=== PATIENT | male | born 1970 | race Two or more races ===

== ENCOUNTER 2018-01-12 11:28 | Inpatient (IN) | payer OTHER ==
[2018-01-12 15:28] VITALS: BMI 23.3
--- NOTE | 2018-01-12 17:46 | HP ---
COWS - Scale Resting Pulse: 0= [place] 80 or Below Sweatin= Chills/Flushing Restless Observation: 1= Difficult to Sit Still Pupil Size: 0= Normal to Room Light Bone or Joint Aches: 1= Mild Discomfort Runny Nose/ Eye Tearin= Runny Nose/Eyes GI Upset > 30mins: 2= Nausea/Diarrhea Tremor Observation: 1= Tremor [place], Not Seen Yawning Observation: 4= Several Times/Minute Anxiety or Irritability: 1=Feels Anxious/Irritable Goose Flesh Skin: 3=Piloerection COWS Score: 16 Admission [facility] Chief Complaint: opioid withdrawal symptoms Allergies/Adverse Reactions: Allergies Allergy/AdvReac Type Severity Reaction Status Date / Time Fish Containing Products Allergy Severe Swelling Verified 01/12/18 16:54 No Known Drug Allergies Allergy Verified 01/12/18 16:54 NKDA Allergy Uncoded 01/12/18 16:54 History of Present Illness: 47 yo male with hx of nicotine, IV heroin and IV cocaine dependence is here seeking detox. Last detox at [facility] one year ago. PMHX: Hep C, insomnia and depression. Denies suicidal / homicidal ideation. Denies hx of black outs, OD or seizures. Longest period of sobriety 4 years ( 1999 - 2003). Exam Limitations: No Limitations - Ebola screening Have you traveled outside of the country in the last 21 days: No Have you had contact with anyone from an Ebola affected area: No Have you been sick,other than usual withdrawal symptoms: No Do you have a fever: No - Review of Systems Constitutional: Chills, Diaphoresis, Loss of Appetite, Changes in sleep EENT: reports: Dental Problems (missing teeth) Respiratory: reports: No Symptoms reported Cardiac: reports: No Symptoms Reported GI: reports: Nausea, Poor Appetite, Poor Fluid Intake, Abdominal cramping : reports: No Symptoms Reported Musculoskeletal: reports: No Symptoms Reported Integumentary: reports: Other (dryness) Endocrine: reports: Increased Thirst Hematology: reports: No Symptoms Reported Psychiatric: reports: Mood/Affect Appropiate, Orientated x3, Depressed Other Systems: Reviewed and Negative Patient History - Patient Medical History Hx Anemia: No Hx Asthma: No Hx Chronic Obstructive Pulmonary Disease (COPD): No Hx Cancer: No Hx Cardiac Disorders: No Hx Congestive Heart Failure: No Hx Hypertension: No Hx Hypercholesterolemia: No Hx Pacemaker: No HX Cerebrovascular Accident: No Hx Seizures: No Hx Dementia: No Hx Diabetes: No Hx Gastrointestinal Disorders: No Hx Liver Disease: Yes (Hep C ) Hx Genitourinary Disorders: No Hx Sexually Transmitted Disorders: No Hx Renal Disease (ESRD): No Hx Thyroid Disease: No Hx Human Immunodeficiency Virus (HIV): No (1 year ago , declines testing ) Hx Hepatitis C: Yes (dieagnosed 1996) Hx Depression: Yes Hx Suicide Attempt: Yes (tried to jump in front of a car./denies any S/H ideation today) Hx Bipolar Disorder: Yes (rispiriadal) Hx Schizophrenia: No - Patient Surgical History Past Surgical History: Yes Hx Neurologic Surgery: No Hx Cataract Extraction: No Hx Cardiac Surgery: No Hx Lung Surgery: No Hx Breast Surgery: No Hx Breast Biopsy: No Hx Abdominal Surgery: No Hx Appendectomy: No Hx Cholecystectomy: No Hx Genitourinary Surgery: No Hx Section: No Hx Orthopedic Surgery: No Other Surgical History: tendon repair, left hand in 1985 Anesthesia Reaction: No - PPD History Previous Implant?: No Documented Results: Negative w/proof Date: 12/01/15 Results: 0 mm PPD to be Administered?: Yes - Smoking Cessation Smoking history: Current every day smoker Have you smoked in the past 12 months: Yes Aproximately how many cigarettes per day: 20 Hx Chewing Tobacco Use: No Initiated information on smoking cessation: Yes 'Breaking Loose' booklet given: 01/12/18 - Substance & Tx. History Hx Alcohol Use: Yes Hx Substance Use: Yes Substance Use Type: Cocaine, Heroin Hx Substance Use Treatment: Yes (Last detox at [facility] one year ago.) - Substances Abused Cocaine Route: Smoking Frequency: Daily Amount used: $20 Age of first use: 12 Heroin Route: Injection Frequency: Daily Amount used: 10-15 BAGS Age of first use: 21 Date of Last Use: 01/12/18 Family Disease History - Family Disease History Family Disease History: Diabetes: Mother, Heart Disease: Brother Admission Physical Exam S - Vital Signs Vital Signs: Vital Signs - 24 hr 01/12/18 15:26 Temperature 97 F L Pulse Rate 50 L Respiratory 20 Rate Blood Pressure 135/77 - Physical General Appearance: Yes: Disheveled, Mild Distress, Sweating, Anxious HEENTM: Yes: EOMI, Hearing grossly Normal, Normal ENT Inspection, Normocephalic , Normal Voice, VÍCTOR, Pharynx Normal, Tm's normal, Other (poor dentition) Respiratory: Yes: Chest Non-Tender, Lungs Clear, Normal Breath Sounds, No Respiratory Distress, No Accessory Muscle Use Neck: Yes: No masses,lesions,Nodules, Trachea in good position Breast: Yes: Breast Exam Deferred Cardiology: Yes: Regular Rhythm, Regular Rate Abdominal: Yes: Normal Bowel Sounds, Non Tender, Flat, Soft Genitourinary: Yes: Within Normal Limits Back: Yes: Normal Inspection Musculoskeletal: Yes: full range of Motion, Gait Steady, Pelvis Stable Extremities: Yes: Normal Capillary Refill, Normal Inspection, Normal Range of Motion, Non-Tender 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 intact, Fully Oriented, Alert, Motor Strength 5/5, Depressed Affect Integumentary: Yes: Normal Color, 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 (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, no infection present) Lymphatic: Yes: Within Normal Limits - Diagnostic (1) IVDU (intravenous drug user) Current Visit: Yes Status: Acute (2) Cocaine dependence Current Visit: Yes Status: Acute Qualifiers: Substance use status: uncomplicated Qualified Code(s): F14.20 - Cocaine dependence, uncomplicated (3) Hepatitis, chronic Current Visit: Yes Status: Chronic (4) Nicotine dependence Current Visit: Yes Status: Acute Qualifiers: Nicotine product type: cigarettes Substance use status: uncomplicated Qualified Code(s): F17.210 - Nicotine dependence, cigarettes, uncomplicated (5) Opioid dependence with withdrawal Current Visit: Yes Status: Acute Cleared for Admission [facility] - Detox or Rehab [facility] Level of Care: Medically Managed Detox Regimen/Protocol: Methadone [facility] Breath Alcohol Content Breath Alcohol Content: 0 Urine Drug Screen - Results Drug Screen Negative: No Urine Drug Screen Results: CHRISTINA-Cocaine, OPI-Opiates
[2018-01-12] MEDS ORDERED: MAG HYDROX/AL HYDROX/SIMETH 30 ML UNIT-DOSE CUP PO PRN (17:47)
[2018-01-12] MEDS ORDERED: hydrOXYzine PAMOATE 50 MG CAPSULE (FP) PO PRN (17:47)
[2018-01-12] MEDS ORDERED: P-EPHED 60MG/TRIPROLIDI 2.5MG TABLET PO PRN (17:47)
[2018-01-12] MEDS ORDERED: MENTHOL/PHENOL 1 EACH UD MM PRN (17:47)
[2018-01-12] MEDS ORDERED: IBUPROFEN 400 MG TABLET (FP) PO PRN (17:47)
[2018-01-12] MEDS ORDERED: NICOTINE POLACRILEX 2 MG GUM BC PRN (17:47)
[2018-01-12] MEDS ORDERED: MAGNESIUM CITRATE 300 ML BOTTLE PO PRN (17:47)
[2018-01-12] MEDS ORDERED: LOPERAMIDE HCL 2 MG CAPSULE PO PRN (17:47)
[2018-01-12] MEDS ORDERED: ACETAMINOPHEN 325 MG TABLET (FP) PO PRN (17:47)
[2018-01-12] MEDS ORDERED: MAGNESIUM HYDROX 2400MG/30ML ORAL SUSPENSION 30 ML CUP PO PRN (17:47)
[2018-01-12] MEDS ORDERED: guaiFENesin/D-METHORPHAN HB 10 ML UNIT-DOSE CUPS PO PRN (17:47)
[2018-01-12] MEDS ORDERED: METHADONE HCL 10 MG TABLET (FOR DETOX USE ONLY) PO ONE ×2 (18:30→23:00)
[2018-01-12] MEDS: diazePAM 5 MG TABLET PO PRN (19:35)
[2018-01-12] MEDS ORDERED: MELATONIN 5 MG TABLETS PO PRN (22:00)
[2018-01-12] MEDS: THIAMINE HCL 100 MG TABLET (FP) PO SCH (23:15)
[2018-01-13 02:54] LABS: URINE APPEARANCE CLEAR; URINE BILIRUBIN NEGATIVE (<2.0 mg/dL); URINE COLOR AMBER; URINE GLUCOSE (UA) NEGATIVE (NEGATIVE); URINE KETONE NEGATIVE (NEGATIVE); URINE LEUK ESTERASE NEGATIVE (NEGATIVE); URINE NITRITE NEGATIVE (NEGATIVE); URINE PROTEIN NEGATIVE (NEGATIVE); URINE UROBILINOGEN NEGATIVE mg/dL (0.2-1.0)
--- NOTE | 2018-01-13 09:48 | CONSULT ---
[facility] Psychiatric Consult - Data Date of interview: 01/13/18 Admission source: [facility] Identifying data: This is a 47 yo male with hstory of nicotine, IV heroin and IV cocaine dependence with no psychiatric hospitalization history is here reporting withdrawal symptoms and looking for detox. seeking detox. Last detox at [facility] one year ago. Substance Abuse History: Patient reports long history of substsnce abuse, reports abusing Cocaine and Heroin, reports IV abuse and dependence, reports Nicotine ndepemdence as well. Medical History: Hep C, Psychiatric History: As per computer patient has a history of Paranoid Schizophrenia, patient denies history of Schizophrenia, reports being under influence at the time he was diagnosed with Schizophrenia. Patient is poor historyan and probably minimizing his past psychiatric history. Denies suicidal and homicidal history Physical/Sexual Abuse/Trauma History: Denies Additional Comment: Observation. Detox Unit Care P[rotocol. Haldol 1mg po prn q4 for psychosis and anxiety Mental Status Exam - Mental Status Exam Alert and Oriented to: Person Cognitive Function: Fair Patient Appearance: Unkempt Mood: Sad Affect: Flat Patient Behavior: Sedated Speech Pattern: Delayed Voice Loudness: Mildly Soft/Quiet Thought Process: Circumstantial Thought Disorder: Being Controlled Hallucinations: Denies Suicidal Ideation: Denies Homicidal Ideation: Denies Insight/Judgement: Fair Sleep: Difficulty falling asleep Appetite: Weight loss Muscle strength/Tone: Mild Hypotonicity Gait/Station: Shuffling Additional Comments: Observation. Detox Unit Care P[rotocol. Haldol 1mg po prn q4 for psychosis and anxiety Psychiatric Findings - Problem List ([place] 1, 2,3) (1) Cocaine dependence Status: Acute Qualifiers: Substance use status: uncomplicated Qualified Code(s): F14.20 - Cocaine dependence, uncomplicated (2) Heroin dependence Status: Acute (3) IVDU (intravenous drug user) Status: Acute (4) Nicotine dependence Status: Acute Qualifiers: Nicotine product type: cigarettes Substance use status: uncomplicated Qualified Code(s): F17.210 - Nicotine dependence, cigarettes, uncomplicated (5) Opioid dependence with withdrawal Status: Acute (6) Crack cocaine use Status: Chronic (7) Hepatitis C carrier Status: Chronic (8) Hepatitis, chronic Status: Chronic (9) Paranoid schizophrenia Status: Chronic - Initial Treatment Plan Initial Treatment Plan: Observation. Detox Unit Care P[rotocol. Haldol 1mg po prn q4 for psychosis and anxiety
[2018-01-13] MEDS ORDERED: METHADONE HCL 10 MG TABLET (FOR DETOX USE ONLY) PO ONE (10:00)
[2018-01-13] MEDS ORDERED: ONDANSETRON *ODT* 4 MG TABLET SL PRN (10:14)
--- NOTE | 2018-01-13 10:30 | EKG ---
Test Reason : Blood Pressure : / mmHG Vent. Rate : 044 BPM Atrial Rate : 044 BPM P-R Int : 160 ms QRS Dur : 104 ms QT Int : 458 ms P-R-T Axes : 045 058 041 degrees QTc Int : 391 ms MARKED SINUS BRADYCARDIA MODERATE VOLTAGE CRITERIA FOR LVH, MAY BE NORMAL VARIANT ABNORMAL ECG NO PREVIOUS ECGS AVAILABLE Confirmed by SUSAN JETT MD ([id number]) on 01/13/2018 10:30:39 AM Referred By: Confirmed By:SUSAN JETT MD
[2018-01-13] MEDS: PRENATAL VITAMINS W/ FOLIC ACID TABLET (FP) PO SCH (10:33)
[2018-01-13] MEDS: diazePAM 5 MG TABLET PO PRN (10:33)
[2018-01-13] MEDS: NICOTINE 21 MG/24 HOURS TOPICAL PATCH TD SCH (10:34)
[2018-01-13] MEDS: cloNIDine HCL 0.1 MG TABLET PO SCH ×2 (10:35→22:28)
[2018-01-13] MEDS: CYCLOBENZAPRINE HCL 10 MG TABLET (FP) PO PRN (10:35)
[2018-01-13 10:53] LABS: HEMOGLOBIN 13.9 GM/dL (11.7-16.9); MCH 29.2 pg (25.7-33.7); MEAN CELL VOLUME 86.1 fl (80-96); MEAN PLT VOLUME 7.6 fl (7.5-11.1); PLATELET COUNT 239 K/MM3 (134-434); RBC 4.77 M/mm3 (4.00-5.60); WHITE BLOOD COUNT 5.9 K/mm3 (4.0-10.0)
[2018-01-13 11:28] LABS: ANION GAP 11 (8-16); BLOOD UREA NITROGEN 10 mg/dL (7-18); CALCIUM 8.6 mg/dL (8.5-10.1); CHLORIDE 104 mmol/L (98-107); CO2 26 mmol/L (21-32); CREATININE 0.6 mg/dL (0.7-1.3); GLUCOSE,RANDOM 90 mg/dL (74-106); POTASSIUM 3.9 mmol/L (3.5-5.1); SGOT/AST 63 U/L (15-37); SGPT/ALT 58 U/L (12-78); SODIUM 141 mmol/L (136-145)
[2018-01-13 11:30] LABS: ALK PHOS 95 U/L (45-117); BILIRUBIN,TOTAL 0.8 mg/dL (0.2-1.0); TOT PROT 7.8 g/dl (6.4-8.2)
--- NOTE | 2018-01-13 12:47 | PN ---
[facility] COWS - Scale Resting Pulse: 0= [place] 80 or Below Sweatin= Chills/Flushing Restless Observation: 3= Extraneous Movement Pupil Size: 1= Pupils >than Normal Bone or Joint Aches: 2= Severe Diffuse Aches Runny Nose/ Eye Tearin= Runny Nose/Eyes GI Upset > 30mins: 3= Vomiting/Diarrhea Tremor Observation of Outstretched Hands: 2= Slight Tremor Visible Yawning Observation: 1= 1-2x During Session Anxiety or Irritability: 2=Irritable/Anxious Goose Flesh Skin: 0=Smooth Skin COWS Score: 17 S Progress Note (SOAP) Subjective: alert,irritable,anxious,interrupted sleep,pain in the body and back,nausea, vomiting,pain in the body and back Objective: 01/13/18 12:44 Vital Signs Temperature 97.3 F L 01/13/18 09:28 Pulse Rate 53 L 01/13/18 09:28 Respiratory Rate 18 01/13/18 09:28 Blood Pressure 151/80 01/13/18 09:28 O2 Sat by Pulse Oximetry (%) ekg sinus bradycardia 44/min qt/qtc 458/391 no chest pain,no sob,no dizziness Laboratory Last Values WBC 5.9 K/mm3 (4.0-10.0) 01/13/18 07:30 RBC 4.77 M/mm3 (4.00-5.60) 01/13/18 07:30 Hgb 13.9 GM/dL (11.7-16.9) 01/13/18 07:30 Hct 41.0 % (35.4-49) 01/13/18 07:30 MCV 86.1 fl (80-96) 01/13/18 07:30 MCH 29.2 pg (25.7-33.7) 01/13/18 07:30 MCHC 34.0 g/dl (32.0-35.9) 01/13/18 07:30 RDW 15.0 % (11.9-15.9) D 01/13/18 07:30 Plt Count 239 K/MM3 (134-434) 01/13/18 07:30 MPV 7.6 fl (7.5-11.1) 01/13/18 07:30 Sodium 141 mmol/L (136-145) 01/13/18 07:30 Potassium 3.9 mmol/L (3.5-5.1) 01/13/18 07:30 Chloride 104 mmol/L (98-107) 01/13/18 07:30 Carbon Dioxide 26 mmol/L (21-32) 01/13/18 07:30 Anion Gap 11 (8-16) 01/13/18 07:30 BUN 10 mg/dL (7-18) 01/13/18 07:30 Creatinine 0.6 mg/dL (0.7-1.3) L 01/13/18 07:30 Creat Clearance w eGFR > 60 (>60) 01/13/18 07:30 Random Glucose 90 mg/dL (74-106) D 01/13/18 07:30 Calcium 8.6 mg/dL (8.5-10.1) 01/13/18 07:30 Total Bilirubin 0.8 mg/dL (0.2-1.0) 01/13/18 07:30 AST 63 U/L (15-37) H D 01/13/18 07:30 ALT 58 U/L (12-78) D 01/13/18 07:30 Alkaline Phosphatase 95 U/L (45-117) 01/13/18 07:30 Total Protein 7.8 g/dl (6.4-8.2) 01/13/18 07:30 Albumin 3.0 g/dl (3.4-5.0) L 01/13/18 07:30 Urine Color Radha 01/12/18 22:30 Urine Appearance Clear 01/12/18 22:30 Urine pH 6.0 (5.0-8.0) 01/12/18 22:30 Ur Specific [place] 1.026 (1.001-1.035) 01/12/18 22:30 Urine Protein Negative (NEGATIVE) 01/12/18 22:30 Urine Glucose (UA) Negative (NEGATIVE) 01/12/18 22:30 Urine Ketones Negative (NEGATIVE) 01/12/18 22:30 Urine Blood Negative (NEGATIVE) 01/12/18 22:30 Urine Nitrite Negative (NEGATIVE) 01/12/18 22:30 Urine Bilirubin Negative (<2.0 mg/dL) 01/12/18 22:30 Urine Urobilinogen Negative mg/dL (0.2-1.0) 01/12/18 22:30 Ur Leukocyte Esterase Negative (NEGATIVE) 01/12/18 22:30 01/13/18 12:47 rpr pending Assessment: 01/13/18 12:47 withdrawal symptom Plan: continue detox
[2018-01-13] MEDS: THIAMINE HCL 100 MG TABLET (FP) PO SCH (22:28)
[2018-01-14] MEDS: diazePAM 5 MG TABLET PO PRN ×2 (04:40→10:36)
[2018-01-14] MEDS ORDERED: METHADONE HCL 5 MG TABLET (FOR DETOX USE ONLY) PO ONE (10:00)
[2018-01-14] MEDS: CYCLOBENZAPRINE HCL 10 MG TABLET (FP) PO PRN (10:36)
[2018-01-14] MEDS: PRENATAL VITAMINS W/ FOLIC ACID TABLET (FP) PO SCH (10:36)
[2018-01-14] MEDS: cloNIDine HCL 0.1 MG TABLET PO SCH ×2 (10:36→22:58)
[2018-01-14] MEDS: NICOTINE 21 MG/24 HOURS TOPICAL PATCH TD SCH (10:39)
--- NOTE | 2018-01-14 11:50 | PN ---
BHS COWS - Scale Resting Pulse: 0= [place] 80 or Below Sweatin= Chills/Flushing Restless Observation: 3= Extraneous Movement Pupil Size: 1= Pupils >than Normal Bone or Joint Aches: 2= Severe Diffuse Aches Runny Nose/ Eye Tearin= Runny Nose/Eyes GI Upset > 30mins: 2= Nausea/Diarrhea Tremor Observation of Outstretched Hands: 2= Slight Tremor Visible Yawning Observation: 1= 1-2x During Session Anxiety or Irritability: 2=Irritable/Anxious Goose Flesh Skin: 0=Smooth Skin COWS Score: 16 S Progress Note (SOAP) Subjective: alert,irritable,anxious,tremor,pain in the body and back,poor appetite Objective: 01/14/18 11:48 Vital Signs Temperature 97.9 F 01/14/18 10:33 Pulse Rate 52 L 01/14/18 10:33 Respiratory Rate 19 01/14/18 10:33 Blood Pressure 139/84 01/14/18 10:33 O2 Sat by Pulse Oximetry (%) Laboratory Last Values WBC 5.9 K/mm3 (4.0-10.0) 01/13/18 07:30 RBC 4.77 M/mm3 (4.00-5.60) 01/13/18 07:30 Hgb 13.9 GM/dL (11.7-16.9) 01/13/18 07:30 Hct 41.0 % (35.4-49) 01/13/18 07:30 MCV 86.1 fl (80-96) 01/13/18 07:30 MCH 29.2 pg (25.7-33.7) 01/13/18 07:30 MCHC 34.0 g/dl (32.0-35.9) 01/13/18 07:30 RDW 15.0 % (11.9-15.9) D 01/13/18 07:30 Plt Count 239 K/MM3 (134-434) 01/13/18 07:30 MPV 7.6 fl (7.5-11.1) 01/13/18 07:30 Sodium 141 mmol/L (136-145) 01/13/18 07:30 Potassium 3.9 mmol/L (3.5-5.1) 01/13/18 07:30 Chloride 104 mmol/L (98-107) 01/13/18 07:30 Carbon Dioxide 26 mmol/L (21-32) 01/13/18 07:30 Anion Gap 11 (8-16) 01/13/18 07:30 BUN 10 mg/dL (7-18) 01/13/18 07:30 Creatinine 0.6 mg/dL (0.7-1.3) L 01/13/18 07:30 Creat Clearance w eGFR > 60 (>60) 01/13/18 07:30 Random Glucose 90 mg/dL (74-106) D 01/13/18 07:30 Calcium 8.6 mg/dL (8.5-10.1) 01/13/18 07:30 Total Bilirubin 0.8 mg/dL (0.2-1.0) 01/13/18 07:30 AST 63 U/L (15-37) H D 01/13/18 07:30 ALT 58 U/L (12-78) D 01/13/18 07:30 Alkaline Phosphatase 95 U/L (45-117) 01/13/18 07:30 Total Protein 7.8 g/dl (6.4-8.2) 01/13/18 07:30 Albumin 3.0 g/dl (3.4-5.0) L 01/13/18 07:30 Urine Color Radha 01/12/18 22:30 Urine Appearance Clear 01/12/18 22:30 Urine pH 6.0 (5.0-8.0) 01/12/18 22:30 Ur Specific [place] 1.026 (1.001-1.035) 01/12/18 22:30 Urine Protein Negative (NEGATIVE) 01/12/18 22:30 Urine Glucose (UA) Negative (NEGATIVE) 01/12/18 22:30 Urine Ketones Negative (NEGATIVE) 01/12/18 22:30 Urine Blood Negative (NEGATIVE) 01/12/18 22:30 Urine Nitrite Negative (NEGATIVE) 01/12/18 22:30 Urine Bilirubin Negative (<2.0 mg/dL) 01/12/18 22:30 Urine Urobilinogen Negative mg/dL (0.2-1.0) 01/12/18 22:30 Ur Leukocyte Esterase Negative (NEGATIVE) 01/12/18 22:30 RPR Titer Nonreactive (NONREACTIVE) 01/13/18 07:30 Assessment: 01/14/18 11:49 withdrawal symptom Plan: continue detox
[2018-01-14] MEDS: THIAMINE HCL 100 MG TABLET (FP) PO SCH (22:58)
[2018-01-15] MEDS: diazePAM 5 MG TABLET PO PRN ×2 (06:48→10:55)
[2018-01-15] MEDS ORDERED: METHADONE HCL 5 MG TABLET (FOR DETOX USE ONLY) PO ONE (10:00)
[2018-01-15] MEDS: PRENATAL VITAMINS W/ FOLIC ACID TABLET (FP) PO SCH (10:54)
[2018-01-15] MEDS: cloNIDine HCL 0.1 MG TABLET PO SCH (10:54)
[2018-01-15] MEDS: NICOTINE 21 MG/24 HOURS TOPICAL PATCH TD SCH (10:54)
--- NOTE | 2018-01-15 11:05 | PN ---
BHS Progress Note (SOAP) Subjective: alert,irritable,anxious,interrupted sleep,pain in the body and back Objective: 01/15/18 11:04 Vital Signs Temperature 96.8 F L 01/15/18 09:20 Pulse Rate 50 L 01/15/18 09:20 Respiratory Rate 16 01/15/18 09:20 Blood Pressure 116/75 01/15/18 09:20 O2 Sat by Pulse Oximetry (%) Assessment: 01/15/18 11:05 withdrawal symptom Plan: continue detox
[2018-01-15 17:50] VITALS: BP 91/58; PULSE 64; TEMP 96.4
--- NOTE | 2018-01-15 17:59 | PN ---
S Progress Note Note: States leaving AMA as has to go to work. Unable to get patient to stay. Patient alert and oriented. No withdrawal symptoms present at this time. Patient states "I feel fine". CBC,CMP WBC 5.9 K/mm3 (4.0-10.0) 01/13/18 07:30 RBC 4.77 M/mm3 (4.00-5.60) 01/13/18 07:30 Hgb 13.9 GM/dL (11.7-16.9) 01/13/18 07:30 Hct 41.0 % (35.4-49) 01/13/18 07:30 MCV 86.1 fl (80-96) 01/13/18 07:30 MCH 29.2 pg (25.7-33.7) 01/13/18 07:30 MCHC 34.0 g/dl (32.0-35.9) 01/13/18 07:30 RDW 15.0 % (11.9-15.9) D 01/13/18 07:30 Plt Count 239 K/MM3 (134-434) 01/13/18 07:30 MPV 7.6 fl (7.5-11.1) 01/13/18 07:30 Sodium 141 mmol/L (136-145) 01/13/18 07:30 Potassium 3.9 mmol/L (3.5-5.1) 01/13/18 07:30 Chloride 104 mmol/L (98-107) 01/13/18 07:30 Carbon Dioxide 26 mmol/L (21-32) 01/13/18 07:30 Anion Gap 11 (8-16) 01/13/18 07:30 BUN 10 mg/dL (7-18) 01/13/18 07:30 Creatinine 0.6 mg/dL (0.7-1.3) L 01/13/18 07:30 Creat Clearance w eGFR > 60 (>60) 01/13/18 07:30 Random Glucose 90 mg/dL (74-106) D 01/13/18 07:30 Calcium 8.6 mg/dL (8.5-10.1) 01/13/18 07:30 Total Bilirubin 0.8 mg/dL (0.2-1.0) 01/13/18 07:30 AST 63 U/L (15-37) H D 01/13/18 07:30 ALT 58 U/L (12-78) D 01/13/18 07:30 Alkaline Phosphatase 95 U/L (45-117) 01/13/18 07:30 Total Protein 7.8 g/dl (6.4-8.2) 01/13/18 07:30 Albumin 3.0 g/dl (3.4-5.0) L 01/13/18 07:30 Vital Signs - 24 hr 01/15/18 01/15/18 01/15/18 00:30 03:30 06:21 Temperature 97.2 F L Pulse Rate 52 L Respiratory 18 16 18 Rate Blood Pressure 130/68 01/15/18 01/15/18 01/15/18 09:20 15:00 17:49 Temperature 96.8 F L 96.0 F L 96.4 F L Pulse Rate 50 L 44 L 64 Respiratory 16 16 16 Rate Blood Pressure 116/75 124/74 91/58 . Reviewed overdose risks and prevention. Verbalized an understanding. Encouraged to seek medical assistance and follow-up. Encouraged support groups. Patient discharged AMA.
--- NOTE | 2018-01-15 18:00 | DS ---
[facility] Detox Discharge Summary Admission Date: 01/12/18 Discharge Date: 01/15/18 - History Present History: Cocaine Dependence, Opioid Dependence - Physical Exam Results Vital Signs: Vital Signs Temperature 96.4 F L 01/15/18 17:49 Pulse Rate 64 01/15/18 17:49 Respiratory Rate 16 01/15/18 17:49 Blood Pressure 91/58 01/15/18 17:49 O2 Sat by Pulse Oximetry (%) Pertinent Admission Physical Exam Findings: CBC,CMP WBC 5.9 K/mm3 (4.0-10.0) 01/13/18 07:30 RBC 4.77 M/mm3 (4.00-5.60) 01/13/18 07:30 Hgb 13.9 GM/dL (11.7-16.9) 01/13/18 07:30 Hct 41.0 % (35.4-49) 01/13/18 07:30 MCV 86.1 fl (80-96) 01/13/18 07:30 MCH 29.2 pg (25.7-33.7) 01/13/18 07:30 MCHC 34.0 g/dl (32.0-35.9) 01/13/18 07:30 RDW 15.0 % (11.9-15.9) D 01/13/18 07:30 Plt Count 239 K/MM3 (134-434) 01/13/18 07:30 MPV 7.6 fl (7.5-11.1) 01/13/18 07:30 Sodium 141 mmol/L (136-145) 01/13/18 07:30 Potassium 3.9 mmol/L (3.5-5.1) 01/13/18 07:30 Chloride 104 mmol/L (98-107) 01/13/18 07:30 Carbon Dioxide 26 mmol/L (21-32) 01/13/18 07:30 Anion Gap 11 (8-16) 01/13/18 07:30 BUN 10 mg/dL (7-18) 01/13/18 07:30 Creatinine 0.6 mg/dL (0.7-1.3) L 01/13/18 07:30 Creat Clearance w eGFR > 60 (>60) 01/13/18 07:30 Random Glucose 90 mg/dL (74-106) D 01/13/18 07:30 Calcium 8.6 mg/dL (8.5-10.1) 01/13/18 07:30 Total Bilirubin 0.8 mg/dL (0.2-1.0) 01/13/18 07:30 AST 63 U/L (15-37) H D 01/13/18 07:30 ALT 58 U/L (12-78) D 01/13/18 07:30 Alkaline Phosphatase 95 U/L (45-117) 01/13/18 07:30 Total Protein 7.8 g/dl (6.4-8.2) 01/13/18 07:30 Albumin 3.0 g/dl (3.4-5.0) L 01/13/18 07:30 Vital Signs (72 hours) 01/13/18 01/13/18 01/13/18 00:55 06:00 09:28 Temperature 97.9 F 97.3 F L Pulse Rate 43 L 53 L Respiratory 18 18 18 Rate Blood Pressure 151/76 151/80 01/13/18 01/13/18 01/13/18 14:49 17:54 22:24 Temperature 98.2 F 96.6 F L 98.2 F Pulse Rate 50 L 45 L 55 L Respiratory 20 19 19 Rate Blood Pressure 145/79 151/77 128/76 01/14/18 01/14/18 01/14/18 00:30 03:30 07:10 Temperature 97.5 F L Pulse Rate 44 L Respiratory 18 18 18 Rate Blood Pressure 153/87 01/14/18 01/14/18 01/14/18 10:33 13:47 17:28 Temperature 97.9 F 97.5 F L 96.8 F L Pulse Rate 52 L 43 L 49 L Respiratory 19 19 18 Rate Blood Pressure 139/84 136/77 122/74 01/15/18 01/15/18 01/15/18 00:30 03:30 06:21 Temperature 97.2 F L Pulse Rate 52 L Respiratory 18 16 18 Rate Blood Pressure 130/68 01/15/18 01/15/18 01/15/18 09:20 15:00 17:49 Temperature 96.8 F L 96.0 F L 96.4 F L Pulse Rate 50 L 44 L 64 Respiratory 16 16 16 Rate Blood Pressure 116/75 124/74 91/58 - Treatment Hospital Course: Detox Protocol Followed (Did not complete) - Medication Discharge Medications: Ambulatory Orders NK [No Known Home Medication] 01/12/18 - Diagnosis (1) Cocaine dependence Status: Acute Qualifiers: Substance use status: uncomplicated Qualified Code(s): F14.20 - Cocaine dependence, uncomplicated (2) Opioid dependence with withdrawal Status: Acute - AMA Did Patient Leave Against Medical Advice: Yes
[2018-01-16] MEDS ORDERED: METHADONE HCL 10 MG TABLET (FOR DETOX USE ONLY) PO ONE (10:00)
[2018-01-17] MEDS ORDERED: METHADONE HCL 5 MG TABLET (FOR DETOX USE ONLY) PO ONE (06:00)
== END 2018-01-15 18:06 | disposition left against medical advice (07) | DRG 770 ==
LOC: YASAS 11:28 → Y6N 18:02
PROVIDERS: ADMIT Surgery; ATTEND Surgery
PROC: HZ2ZZZZ Detoxification Services for Substance Abuse Treatment (ICD-10-PCS; principal; 2018-01-12)
DX: F11.23 Opioid dependence with withdrawal (principal); F14.20 Cocaine dependence, uncomplicated; F17.210 Nicotine dependence, cigarettes, uncomplicated; B18.2 Chronic viral hepatitis C; R00.1 Bradycardia, unspecified; Z91.013 Allergy to seafood; Z91.5 Personal history of self-harm
CPT/HCPCS: 36415; 80053; 81003; 85027; 86593; 93005; 93010; J0735; Q0162

== ENCOUNTER 2022-04-10 16:31 | Inpatient (IN) | payer OTHER ==
[2022-04-10 17:17] VITALS: BMI 20.9
[2022-04-10] MEDS ORDERED: MAG HYDROX/AL HYDROX/SIMETH 30 ML UNIT-DOSE CUP PO PRN (18:26)
[2022-04-10] MEDS ORDERED: BISMUTH SUBSALICYLATE 524 MG/30 ML PO PRN (18:26)
[2022-04-10] MEDS ORDERED: IBUPROFEN 400 MG TABLET (FP) PO PRN (18:26)
[2022-04-10] MEDS ORDERED: DICYCLOMINE HCL 10 MG CAPSULE PO PRN (18:26)
[2022-04-10] MEDS ORDERED: IBUPROFEN 600 MG TABLET (FP) PO PRN (18:26)
[2022-04-10] MEDS ORDERED: NALOXONE HCL (KLOXXADO) 8 MG SPRAY NS PRN (18:26)
[2022-04-10] MEDS ORDERED: LOPERAMIDE HCL 2 MG CAPSULE PO PRN (18:26)
[2022-04-10] MEDS ORDERED: MAGNESIUM HYDROX 2400MG/30ML ORAL SUSPENSION 30 ML CUP PO PRN (18:26)
[2022-04-10] MEDS ORDERED: ACETAMINOPHEN 325 MG TABLET (FP) PO PRN ×2 (18:26)
[2022-04-10] MEDS ORDERED: BENZOCAINE/MENTHOL (CHLORASEPTIC ) LOZENGE MM PRN (18:26)
[2022-04-10] MEDS ORDERED: NICOTINE 10 MG CARTRIDGE (INHALER) IH PRN (18:26)
[2022-04-10] MEDS ORDERED: MAGNESIUM CITRATE 300 ML BOTTLE PO PRN (18:26)
[2022-04-10] MEDS: methaDONE HCL 10 MG TABLET (FOR DETOX USE ONLY) PO ONE ×2 (19:18→20:57)
[2022-04-10] MEDS ORDERED: MELATONIN 5 MG TABLETS PO SCH (22:00)
[2022-04-10] MEDS: THIAMINE HCL 100 MG TABLET (FP) PO SCH (23:45)
[2022-04-10] MEDS ORDERED: methaDONE HCL 10 MG TABLET (FOR DETOX USE ONLY) PO ONE (23:57)
[2022-04-11] MEDS ORDERED: PRENATAL VITAMINS W/ FOLIC ACID TABLET (FP) PO SCH (10:00)
[2022-04-11] MEDS ORDERED: methaDONE HCL 10 MG TABLET (FOR DETOX USE ONLY) PO ONE (10:00)
[2022-04-11] MEDS: CITALOPRAM HYDROBROMIDE 20 MG TABLET PO SCH (10:09)
[2022-04-11] MEDS: risperiDONE 2 MG TABLET PO SCH ×2 (10:09→22:13)
[2022-04-11 11:58] LABS: MCH 30.3 pg (25.7-33.7); MCHC 34.1 g/dl (32.0-35.9); MEAN CELL VOLUME 88.9 fl (80-96); MEAN PLT VOLUME 7.2 fl (7.5-11.1); PLATELET COUNT 243 10^3/uL (134-434); RBC 4.61 M/mm3 (4.00-5.60); RDW 13.5 % (11.9-15.9)
[2022-04-11 12:13] LABS: ALBUMIN 3.2 g/dl (3.4-5.0); CALCIUM 8.7 mg/dL (8.5-10.1)
[2022-04-11 12:16] LABS: CREATININE 0.5 mg/dL (0.55-1.3)
[2022-04-11 12:18] LABS: BILIRUBIN,TOTAL 1.2 mg/dL (0.2-1); TOT PROT 7.3 g/dl (6.4-8.2)
[2022-04-11] MEDS: NICOTINE POLACRILEX 2 MG GUM BUC PRN (15:53)
[2022-04-11] MEDS ORDERED: risperiDONE 1 MG TABLET PO SCH (17:00)
[2022-04-11] MEDS: cloNIDine HCL 0.1 MG TABLET PO PRN (17:44)
[2022-04-11] MEDS: METHOCARBAMOL 500 MG TABLET PO PRN (17:44)
[2022-04-11] MEDS ORDERED: QUEtiapine FUMARATE 100 MG TABLET (FP) PO SCH (22:00)
[2022-04-11] MEDS: THIAMINE HCL 100 MG TABLET (FP) PO SCH (22:13)
[2022-04-12] MEDS: METHOCARBAMOL 500 MG TABLET PO PRN (01:43)
[2022-04-12] MEDS: cloNIDine HCL 0.1 MG TABLET PO PRN (01:44)
[2022-04-12] MEDS: NICOTINE POLACRILEX 2 MG GUM BUC PRN (07:53)
[2022-04-12] MEDS: risperiDONE 2 MG TABLET PO SCH (09:04)
[2022-04-12] MEDS: CITALOPRAM HYDROBROMIDE 20 MG TABLET PO SCH (09:04)
[2022-04-12 09:08] VITALS: PULSE 80
[2022-04-12 09:27] VITALS: BP 110/77; RESP 17; TEMP 97.3
[2022-04-12] MEDS ORDERED: methaDONE HCL 10 MG TABLET (FOR DETOX USE ONLY) PO ONE ×2 (10:00)
[2022-04-14] MEDS ORDERED: methaDONE HCL 10 MG TABLET (FOR DETOX USE ONLY) PO ONE ×2 (10:00)
== END 2022-04-12 10:00 | disposition left against medical advice (07) | DRG 770 ==
LOC: YASAS 16:31 → Y6N 19:14
PROVIDERS: ADMIT Allergy & Immunology; ATTEND Surgery
PROC: HZ2ZZZZ Detoxification Services for Substance Abuse Treatment (ICD-10-PCS; principal; 2022-04-10)
DX: F11.23 Opioid dependence with withdrawal (principal); F14.20 Cocaine dependence, uncomplicated; F17.210 Nicotine dependence, cigarettes, uncomplicated; F19.282 Other psychoactive substance dependence with psychoactive substance-induced sleep disorder; F20.9 Schizophrenia, unspecified; F90.9 Attention-deficit hyperactivity disorder, unspecified type; F43.10 Post-traumatic stress disorder, unspecified; Z86.19 Personal history of other infectious and parasitic diseases
CPT/HCPCS: 36415; 80053; 85027; 86780; 93005; 93010; C9803-CS; J2794; U0003; U0005